=== PATIENT | male | born 1970 | race Caucasian/White ===

== ENCOUNTER 2019-05-13 23:01 | Inpatient (IN) | payer MEDICARE, MEDICAID ==
[~2019-05-13] VITALS: Ht 175.3 cm; Wt 61.2 kg
--- NOTE | 2019-05-13 23:14 | Emergency Room Report ---
History of Present Illness General Chief Complaint: Dyspnea/Respdistress Source: Patient Present Illness [facility] This is a 48-year-old male with a history of renal failure on hemodialysis. His dialysis days are Monday, , and Monday. He presents with chief plane of shortness of breath. Onset today. Severe. Per EMS he was dyspneic but oxygenation was 93% on room air. They gave him a breathing treatment. He said this happened to him before. Denies any nausea vomiting. Denies any chest pain. Worse with exertion. Better with rest. Also very anxious and requesting Ativan. Allergies: Coded Allergies: PROCHLORPERAZINE (Verified Allergy, Unknown, 05/13/19) Uncoded Allergies: ERYTHROMYCIN (Allergy, Unknown, 05/13/19) Patient History Past Medical History: see triage record, old chart reviewed, HTN, renal disease , dialysis Past Surgical History: other Pertinent Family History: none Social History: Reports: smoking Immunizations: other Reviewed Nursing Documentation: PMH: Agreed; PSxH: Agreed Nursing Documentation-PMH Hx Cardiac Problems: No - HIV Hx Hypertension: Yes Hx COPD: Yes Hx Gastrointestinal Problems: Yes Hx Dialysis: Yes History Of Psychiatric Problem: No - NEUROPATHY Review of Systems Eye: Denies: eye pain, blurred vision ENT: Denies: ear pain, nose congestion, throat swelling Respiratory: Reports: shortness of breath; Denies: cough Cardiovascular: Denies: chest pain, palpitations Gastrointestinal: Denies: abdominal pain, diarrhea, nausea, vomiting Musculoskeletal: Denies: back pain, joint pain Skin: Denies: rash Neurological: Denies: headache, numbness Endocrine: Denies: increased thirst, increased urine Hematologic/Lymphatic: Denies: easy bruising All Other Systems: negative except mentioned in HPI Physical Exam Vital Signs Date Time Temp Pulse Resp B/P (MAP) Pulse Ox O2 Delivery O2 Flow Rate FiO2 05/13/19 23:01 97.7 100 28 206/115 (145) 93 Room Air Vitals with hypertension Sp02 EP Interpretation: reviewed, abnormal General Appearance: well appearing, alert, moderate distress Head: normocephalic, atraumatic Eyes: bilateral eye PERRL, bilateral eye EOMI ENT: hearing grossly normal, normal pharynx Neck: full range of motion, supple, no meningismus Respiratory: chest non-tender, respiratory distress, decreased breath sounds, accessory muscle use, rales Cardiovascular #1: regular rate, rhythm, no murmur Gastrointestinal: normal bowel sounds, non tender, no mass, no organomegaly, no bruit, non-distended Musculoskeletal: back normal, gait/station normal, normal range of motion Psychiatric: mood/affect normal Procedures Critical Care Time Critical Care Time Critical care is mandated in this patient who presented with mature distress secondary to fluid overloaded. Patient require my urgent intervention to attenuate the risks of respiratory collapse which may lead to cardiovascular collapse and . Critical care time is 35 minutes excluding any reportable procedure. Critical care time included evaluation, multiple reevaluation, looking at old charts, interpreting laboratory and diagnostic data, discussing case with patient and family and consultants, and charting. Medical Decision Making Diagnostic Impression: Primary Impression: Respiratory failure with hypoxia Qualified Codes: J96.01 - Acute respiratory failure with hypoxia Additional Impressions: Acute exacerbation of CHF (congestive heart failure) Qualified Codes: I50.9 - Heart failure, unspecified Acute hyperkalemia Anxiety Hypertension Qualified Codes: I10 - Essential (primary) hypertension ER Course Patient with acute respiratory failure secondary to fluid overloaded. Chest x- ray showed basilar congestion but no pulmonary edema. He is better on BiPAP. Blood pressure treated with hydralazine. He does have hyperkalemia of 6.1. No EKG changes of peaked T waves. Kayexalate given here. First set of troponin negative. Patient will be admitted for monitoring and dialysis. I discussed the case with Dr. Cheema who will admit. Lab Results Impression Labs with hyperkalemia EKG Diagnostic Results Rate: normal Rhythm: NSR ST Segments: no acute changes Rhythm Strip Diag. Results EP Interpretation: yes Rate: 100 Rhythm: NSR, no PVC's, no ectopy Chest X-Ray Diagnostic Results Chest X-Ray Diagnostic Results : Chest X-Ray Ordered: Yes # of Views/Limited/Complete: 1 View Indication: Shortness of Breath EP Interpretation: Yes Interpretation: no consolidation, no effusion, no pneumothorax, other - Cardiomegaly with vascular congestion Impression: Other - CHF Electronically Signed by: Chato Randolph MD Last Vital Signs Date Time Temp Pulse Resp B/P (MAP) Pulse Ox O2 Delivery O2 Flow Rate FiO2 05/13/19 23:01 97.7 100 28 206/115 (145) 93 Room Air Status: improved Disposition: ADMITTED INPATIENT Condition: Serious Chato Randolph MD May 13, 2019 23:14
[2019-05-13] MEDS ORDERED: LORazepam Inj 2mg/ml 1ml IV ONE (23:15)
[2019-05-13 23:22] VITALS: BP 156/84
[2019-05-13 23:30] LABS: BASOPHILS % (AUTO) 0.8 % (0.0-2.0); EOSINOPHILS % (AUTO) 3.1 % (0.0-3.0); HEMATOCRIT 33.9 % (42.0-52.0); HEMOGLOBIN 11.7 G/DL (14.2-18.0); LYMPHOCYTES % (AUTO) 16.8 % (20.0-45.0); MEAN CORPUSCULAR VOLUME 93 FL (80-99); MONOCYTES % (AUTO) 6.3 % (1.0-10.0); NEUTROPHILS % (AUTO) 72.9 % (45.0-75.0); PLATELET COUNT 119 K/UL (150-450); RED BLOOD COUNT 3.62 M/UL (4.70-6.10); RED CELL DISTRIBUTION WIDTH 12.4 % (11.6-14.8)
[2019-05-13] MEDS ORDERED: IBUPROFEN600 MG ORAL (23:39)
[2019-05-13] MEDS ORDERED: BENADRYL25 M3 PO (23:39)
[2019-05-13] MEDS ORDERED: LAMIVUDINE10 MG/1 ML PO (23:39)
[2019-05-13] MEDS ORDERED: TRAZODONE HCL100 MG ORAL (23:39)
[2019-05-13] MEDS ORDERED: NEURONTIN300 MG ORAL (23:39)
[2019-05-13] MEDS ORDERED: COREG25 MG ORAL (23:39)
[2019-05-13] MEDS ORDERED: TENORMIN100 MG ORAL (23:39)
[2019-05-13] MEDS ORDERED: CLOPIDOGREL75 MG ORAL (23:39)
[2019-05-13] MEDS ORDERED: NORVASC10 MG ORAL (23:39)
[2019-05-13] MEDS ORDERED: TIZANIDINE HCL4 M2 ORAL (23:39)
[2019-05-13] MEDS ORDERED: DRONABINOL10 MG PO (23:39)
[2019-05-13] MEDS ORDERED: TIVICAY50 MG ORAL (23:39)
[2019-05-13] MEDS ORDERED: LORAZEPAM2 MG ORAL (23:39)
[2019-05-13] MEDS ORDERED: RENVELA2.4 GM ORAL (23:39)
[2019-05-13] MEDS ORDERED: ATORVASTATIN CA20 MG ORAL (23:39)
[2019-05-13] MEDS ORDERED: MEGESTROL ACETA40 MG PO (23:39)
[2019-05-13] MEDS ORDERED: DOCUSATE SODIU100 M2 ORAL (23:39)
[2019-05-13 23:55] LABS: ALANINE AMINOTRANSFERASE 15 U/L (12-78); ALBUMIN/GLOBULIN RATIO 1.3 (1.0-2.7); ALKALINE PHOSPHATASE 69 U/L (46-116); ANION GAP 14 mmol/L (5-15); ASPARTATE AMINO TRANSFERASE 18 U/L (15-37); BILIRUBIN,TOTAL 0.4 MG/DL (0.2-1.0); BLOOD UREA NITROGEN 64 mg/dL (7-18); CALCIUM 8.9 MG/DL (8.5-10.1); CARBON DIOXIDE 26 MMOL/L (21-32); CHLORIDE 99 MMOL/L (98-107); CKMB 2.1 NG/ML (0.0-3.6); CREATINE KINASE 111 U/L (26-308); CREATININE 9.9 MG/DL (0.55-1.30); SODIUM 140 MMOL/L (136-145)
[2019-05-13 23:59] LABS: POTASSIUM 6.1 MMOL/L (3.5-5.1)
[2019-05-14] MEDS ORDERED: Sodium Polystyrene Sulfonate 15gm Powder ORAL ONE
[2019-05-14] MEDS ORDERED: LORazepam Inj 2mg/ml 1ml IV ONE (00:15)
[2019-05-14 01:10] VITALS: BP 171/110
[2019-05-14] MEDS ORDERED: DiphenhydrAMINE 50mg/ml Inj IVP ONE (02:15)
[2019-05-14] MEDS ORDERED: LORazepam 1mg tab ORAL PRN (07:00)
[2019-05-14] MEDS ORDERED: traMADol 50mg tab ORAL PRN (07:15)
--- NOTE | 2019-05-14 07:30 | History and Physical Report ---
DATE OF ADMISSION: 05/14/2019 REASON FOR ADMISSION: 1. Shortness of breath. 2. Hyperkalemia. HISTORY OF PRESENT ILLNESS: The patient is a 48-year-old gentleman on dialysis three days a week, Monday, , Monday, presented to the emergency room for further evaluation and care of shortness of breath and high potassium of 6.1. Was placed on BiPAP and admitted to the step-down unit. The patient did have hemodialysis overnight. The patient is breathing better. ALLERGIES: Prochlorperazine and erythromycin. PAST MEDICAL HISTORY: 1. HIV. 2. End-stage renal disease. 3. Hypertension. PAST SURGICAL HISTORY: Dialysis catheter. FAMILY HISTORY: Positive for hypertension. SOCIAL HISTORY: Positive for tobacco. No current alcohol or illicit drug use. REVIEW OF SYSTEMS: NEUROLOGIC: The patient denies any headache, change in vision, syncope, presyncopal episodes. CARDIOVASCULAR: No current chest pain, palpitations, or angina. PULMONARY: Mild shortness of breath, nonproductive cough. GI/: No change in urinary or bowel habits. No nausea, vomiting, or diarrhea. ENDOCRINOLOGY: No night sweats, fevers, or chills. LABORATORY AND DIAGNOSTIC DATA: Labs dated 05/13/2019 potassium 6.1, BUN 64, creatinine 9.9. Brain natriuretic peptide 35,000. White cell count 8, hemoglobin 11.7, and platelet count 119. PHYSICAL EXAMINATION: VITAL SIGNS: Blood pressure 171/110, respiratory rate 26, pulse 102, temperature 98.0. GENERAL: The patient awake, mildly anxious, agitated. HEENT: Extraocular muscles intact. No lymphadenopathy. Oropharyngeal mucosa is clear and dry CARDIOVASCULAR: S1 and S2. Mild tachycardia. ABDOMEN: Nondistended and nontender. EXTREMITIES: No edema. ASSESSMENT AND PLAN: 1. Hyperkalemia. At this time, the patient was emergently dialyzed overnight and repeat laboratories are pending. 2. Shortness of breath. The patient at 3 liters of ultrafiltration and is currently on BiPAP, breathing better. Pulmonary to evaluate. 3. Hypertension. We will adjust medications as deemed appropriate. 4. HIV. We will investigate whether or not the patient was on HIV medications. 5. Anxiety. We will continue benzodiazepines. 6. DVT prophylaxis with heparin. Modesto Elizondo MD DR: Galileo JOB#: [id number] CC:
[2019-05-14 08:00] VITALS: BP 161/101
[2019-05-14 08:31] LABS: ANION GAP 11 mmol/L (5-15); BLOOD UREA NITROGEN 42 mg/dL (7-18); CALCIUM 9.2 MG/DL (8.5-10.1); CARBON DIOXIDE 28 MMOL/L (21-32); CHLORIDE 100 MMOL/L (98-107); CREATININE 7.5 MG/DL (0.55-1.30); POTASSIUM 4.9 MMOL/L (3.5-5.1); SODIUM 138 MMOL/L (136-145)
[2019-05-14] MEDS ORDERED: Aspirin Baby 81mg ORAL SCH (09:00)
[2019-05-14] MEDS ORDERED: Carvedilol 12.5mg tab ORAL SCH (09:00)
[2019-05-14] MEDS ORDERED: Heparin 5000 units/ml inj SUBQ SCH (09:00)
--- NOTE | 2019-05-14 10:04 | Diagnostic Imaging Report ---
Indication: Shortness of breath Technique: One view of the chest Comparison: none Findings: Interstitial markings are slightly prominent. The heart is borderline enlarged. There is slight blunting of the bilateral costophrenic sulci. No focal airspace consolidation. There is evidence of prior cervical spine surgery. Old healed rib fracture deformities are seen on the left. Impression: Borderline cardiomegaly Slightly prominent interstitial markings, could represent chronic changes such as COPD changes versus mild interstitial congestion. Correlate with clinical findings Slight bilateral costophrenic angle blunting, scarring versus pleural fluid
--- NOTE | 2019-05-14 10:59 | Cardiology Report ---
APPROVED REPORT EKG Measurement Heart [id number] Normal sinus rhythm Left ventricular hypertrophy with repolarization abnormality Prolonged QT Abnormal ECG
[2019-05-14 12:00] VITALS: BP 151/102
--- NOTE | 2019-05-14 12:01 | Consultation ---
Consult Note Consult Note HISTORY OF PRESENT ILLNESS: The patient is a 48-year-old gentleman on dialysis three days a week, Monday, , Monday, presented to the emergency room for further evaluation and care of shortness of breath and high potassium of 6.1. He was placed on BiPAP and admitted to the step-down unit. The patient did have hemodialysis overnight. The patient is breathing better. He denies any pre-existing pulmonary issues. ALLERGIES: Prochlorperazine and erythromycin. PAST MEDICAL HISTORY: 1. HIV. 2. End-stage renal disease. 3. Hypertension. PAST SURGICAL HISTORY: Dialysis catheter. FAMILY HISTORY: Positive for hypertension. SOCIAL HISTORY: Positive for tobacco. No current alcohol or illicit drug use. REVIEW OF SYSTEMS: NEUROLOGIC: The patient denies any headache, change in vision, syncope, presyncopal episodes. CARDIOVASCULAR: No current chest pain, palpitations, or angina. PULMONARY: Mild shortness of breath, nonproductive cough. GI/: No change in urinary or bowel habits. No nausea, vomiting, or diarrhea. ENDOCRINOLOGY: No night sweats, fevers, or chills. LABORATORY AND DIAGNOSTIC DATA: Labs dated 05/13/2019 potassium 6.1, BUN 64, creatinine 9.9. Brain natriuretic peptide 35,000. White cell count 8, hemoglobin 11.7, and platelet count 119. PHYSICAL EXAMINATION: VITAL SIGNS: Blood pressure 171/90, respiratory rate 26, pulse 98, temperature 98.0. GENERAL: The patient awake, mildly anxious, agitated. HEENT: Extraocular muscles intact. No lymphadenopathy. Oropharyngeal mucosa is clear and dry CARDIOVASCULAR: S1 and S2. Mild tachycardia. Chest clear to auscultation. ABDOMEN: Nondistended and nontender. EXTREMITIES: No edema. ASSESSMENT AND PLAN: 1. Hyperkalemia. At this time, the patient was emergently dialyzed overnight and repeat laboratories are pending. 2. Shortness of breath. The patient at 3 liters of ultrafiltration and is currently on BiPAP, breathing better. On low flow O2. 3. Hypertension. 4. HIV. 5. Anxiety. 6. DVT prophylaxis with heparin. Will follow MD Sebastian Bell Omar Syed MD May 14, 2019 12:01
[2019-05-14] MEDS ORDERED: Meningococcal Polysacc Vaccine IM ONE (14:00)
[2019-05-14] MEDS ORDERED: Atorvastatin 20mg tab ORAL SCH (21:00)
[2019-05-14] MEDS ORDERED: TraZODone 100mg tab ORAL SCH (21:00)
--- NOTE | 2019-05-15 11:27 | Discharge Summary ---
Discharge Summary Discharge Summary _ DATE OF ADMISSION: 05/14/2019 DATE OF DISCHARGE: 05/14/2019 DISCHARGED BY: Dr. Elizondo REASON FOR ADMISSION: 48 years old male with past medical history of end-stage renal disease, on hemodialysis 3 times a week , hypertension, HIV status , presented to emergency room for evaluation due to shortness of breath for 1 day. Per EMS patient was dyspneic, but pulse oximetry was 92% on room air. Patient received bronchodilator treatment en route to the hospital. Patient stated that it happened to him before. He denied nausea and vomiting. He denied chest pain. Upon evaluation vital signs revealed elevated blood pressure of 206/115 , pulse oximetry was 93% on room air. EKG revealed normal sinus rhythm, no acute ischemic changes. Chest x-ray demonstrated borderline cardiomegaly with slightly prominent interstitial markings , representing chronic changes , such as COPD changes versus mild interstitial congestion. Laboratory work-up revealed no leukocytosis, hemoglobin 11.7, hematocrit 33.9 , platelet count 119. Chemistry showed potassium 6.1. BUN 64, creatinine 9.9, consistent with known history of end-stage renal disease. Troponin was negative. Pro BNP about 35,000. EKG revealed normal sinus rhythm , no acute ischemic changes. Patient was placed on the BiPAP. Shortness of breath was likely secondary to fluid overload. Blood pressure was managed with hydralazine. Kayexalate provided for hyperkalemia. Patient admitted to telemetry floor and hemodialysis CONSULTANTS: pulmonary Dr. Cortes HOSPITAL COURSE: Patient admitted to the direct observational unit. Patient received hemodialysis with ultrafiltration overnight. Respiratory status improved . Blood pressure was managed with home medications, including beta-heather and calcium channel heather , and hydralazine was on board as needed. Other home medication continued. DVT prophylaxis with heparin provided In the morning potassium 4.9. BUN 42, creatinine 7.5. Blood pressure down to 151/102. Pulse oximetry 97% on oxygen 2 L via nasal cannula. Patient clinically stabilized and was ready for discharge. Due to rapid and unexpected improvement in patient condition, patient was discharged in 1 day. FINAL DIAGNOSES: Acute hyperkalemia -resolved Shortness of breath, likely due to fluid overload -resolved ESRD, on HD Hypertension with hypertensive urgency initially-resolved HIV status Anxiety DISCHARGE MEDICATIONS: See Medication Reconciliation list. DISCHARGE INSTRUCTIONS: Patient was discharged home with home health services. Follow up with primary care provider in one week. I have been assigned to dictate discharge summary for this account. I was not involved in the patient's management. Susie Avalos NP May 15, 2019 11:27
== END 2019-05-14 15:08 | disposition home health service (06) | DRG 640 ==
LOC: EDBD 23:01 → EMR 23:39 → 2W 05-14 00:02 → EDBEDREQ 05-14 00:33 → 2W 05-14 00:53
PROC: 5A1D70Z Performance of Urinary Filtration, Intermittent, Less than 6 Hours Per Day (ICD-10-PCS; principal; 2019-05-14)
PROC: 5A09357 Assistance with Respiratory Ventilation, Less than 24 Consecutive Hours, Continuous Positive Airway Pressure (ICD-10-PCS; principal; 2019-05-14)
DX: E87.5 Hyperkalemia (principal); N18.6 End stage renal disease; I12.0 Hypertensive chronic kidney disease with stage 5 chronic kidney disease or end stage renal disease; Z21 Asymptomatic human immunodeficiency virus [HIV] infection status; F41.9 Anxiety disorder, unspecified; E87.70 Fluid overload, unspecified; Z99.2 Dependence on renal dialysis; I16.0 Hypertensive urgency; Z23 Encounter for immunization; Z88.1 Allergy status to other antibiotic agents; Z88.8 Allergy status to other drugs, medicaments and biological substances
CPT/HCPCS: 36415; 71045; 80048; 80053; 82550; 82553; 83880; 84484; 85025; 85610; 85730; 87081; 87340; 93005; 94660; 94664; 96374; 96375; 96376; 99285

== ENCOUNTER 2019-06-11 20:07 | Emergency (ER) | payer MEDICARE, MEDICAID ==
[~2019-06-11] VITALS: Ht 170.2 cm; Wt 72.6 kg
[~2019-06-11 20:07] MED LIST: ATORVASTATIN CA20 MG ORAL; BENADRYL25 M3 PO; CLOPIDOGREL75 MG ORAL; COREG25 MG ORAL; DOCUSATE SODIU100 M2 ORAL; DRONABINOL10 MG PO; IBUPROFEN600 MG ORAL; LAMIVUDINE10 MG/1 ML PO; LORAZEPAM2 MG ORAL; MEGESTROL ACETA40 MG PO; NEURONTIN300 MG ORAL; NORVASC10 MG ORAL; RENVELA2.4 GM ORAL; TENORMIN100 MG ORAL; TIVICAY50 MG ORAL; TIZANIDINE HCL4 M2 ORAL; TRAZODONE HCL100 MG ORAL
[2019-06-11 20:20] VITALS: BP 162/95
[2019-06-11] MEDS ORDERED: GABAPENTIN300 MG ORAL (20:33)
--- NOTE | 2019-06-11 20:34 | Emergency Room Report ---
History of Present Illness General Chief Complaint: Seizure Source: Patient, Medical Record Present Illness HPI 48-year-old male history of HIV, on dialysis presents with seizure just prior to arrival, patient was unable to obtain a seizure medications he supposed to take gabapentin 300 mg 3 times a day, he was witnessed at the long-term house to have a tonic-clonic movement, lasting a minute, patient thinks he may have hit his head, patient does not make urine because he is on dialysis, denies any chest pain shortness of breath states he is back to baseline, patient presents via EMS for evaluation Patient reports he gets dialysis Monday, he states he is due for dialysis tomorrow because he denies any chest pain shortness of breath states he needs to take his gabapentin he has not filled his prescription for gabapentin to prevent seizures. Allergies: Coded Allergies: PROCHLORPERAZINE (Verified Allergy, Unknown, 05/13/19) Uncoded Allergies: ERYTHROMYCIN (Allergy, Unknown, 05/13/19) Patient History Past Medical History: see triage record Reviewed Nursing Documentation: PMH: Agreed; PSxH: Agreed Nursing Documentation-PMH Hx Cardiac Problems: Yes - HIV Hx Hypertension: Yes Hx COPD: Yes Hx Cancer: No Hx Gastrointestinal Problems: No Hx Dialysis: Yes - , SAT Hx Neurological Problems: Yes Hx Peripheral Neuropathy: Yes Review of Systems All Other Systems: negative except mentioned in HPI Physical Exam Vital Signs Date Time Temp Pulse Resp B/P (MAP) Pulse Ox O2 Delivery O2 Flow Rate FiO2 06/11/19 20:06 97.9 89 16 162/95 (117) 98 Room Air Sp02 EP Interpretation: reviewed, normal General Appearance: well appearing, no apparent distress, alert Head: normocephalic, atraumatic Eyes: bilateral eye PERRL, bilateral eye EOMI ENT: uvula midline, moist mucus membranes Neck: supple, thyroid normal, supple/symm/no masses Respiratory: lungs clear, no respiratory distress, no retraction, no accessory muscle use Cardiovascular #1: normal peripheral pulses, regular rate, rhythm, no edema, no gallop, no murmur Gastrointestinal: non tender, soft, no guarding, no rebound Musculoskeletal: normal inspection Neurologic: alert, oriented x3 Psychiatric: mood/affect normal Skin: no rash, warm/dry Medical Decision Making Diagnostic Impression: Primary Impression: Epileptic seizure, generalized Additional Impression: Seizure disorder ER Course 48-year-old male presents with seizure patient did not take his seizure medication today, patient was recently started on gabapentin patient states he has not had a chance to fill it patient with breakthrough seizure Will provide patient with gabapentin here we will scan brain, will evaluate for electrolyte abnormalities Patient at baseline CT neg will dispo patient home w/ return precautions Gabapentin provided Laboratory Tests Test 06/11/19 20:45 White Blood Count 4.5 K/UL (4.8-10.8) L Red Blood Count 2.88 M/UL (4.70-6.10) L Hemoglobin 9.3 G/DL (14.2-18.0) L Hematocrit 27.6 % (42.0-52.0) L Mean Corpuscular Volume 96 FL (80-99) Mean Corpuscular Hemoglobin 32.4 PG (27.0-31.0) H Mean Corpuscular Hemoglobin Concent 33.8 G/DL (32.0-36.0) Red Cell Distribution Width 15.0 % (11.6-14.8) H Platelet Count 135 K/UL (150-450) L Mean Platelet Volume 7.3 FL (6.5-10.1) Neutrophils (%) (Auto) 63.0 % (45.0-75.0) Lymphocytes (%) (Auto) 19.2 % (20.0-45.0) L Monocytes (%) (Auto) 13.5 % (1.0-10.0) H Eosinophils (%) (Auto) 2.7 % (0.0-3.0) Basophils (%) (Auto) 1.6 % (0.0-2.0) Sodium Level 142 MMOL/L (136-145) Potassium Level 4.5 MMOL/L (3.5-5.1) Chloride Level 103 MMOL/L (98-107) Carbon Dioxide Level 27 MMOL/L (21-32) Anion Gap 12 mmol/L (5-15) Blood Urea Nitrogen Pending Creatinine 6.9 MG/DL (0.55-1.30) H Estimate Glomerular Filtration Rate 8.5 mL/min (>60) Glucose Level 104 MG/DL (74-106) Calcium Level 9.8 MG/DL (8.5-10.1) Total Bilirubin 0.3 MG/DL (0.2-1.0) Aspartate Amino Transferase (AST) 16 U/L (15-37) Alanine Aminotransferase (ALT) 15 U/L (12-78) Alkaline Phosphatase 77 U/L (46-116) Total Protein Pending Albumin Pending Globulin Pending Salicylates Level 2.8 ug/mL (2.8-20) Acetaminophen Level Pending Phenytoin (Dilantin) Level Pending Valproic Acid Level Pending Carbamazepine (Tegretol) Level < 0.5 ug/mL (4.0-12.0) L Phenobarbital Level Pending Serum Alcohol Pending EKG Diagnostic Results EKG Time: 20:35 EP Interpretation: NSR, rate 86, QTc 502, no acute ST elevations, normal axis Rhythm Strip Diag. Results Rhythm Strip Time: 21:06 EP Interpretation: yes Rate: 85 Rhythm: NSR, no PVC's, no ectopy Chest X-Ray Diagnostic Results Chest X-Ray Diagnostic Results : Chest X-Ray Ordered: Yes # of Views/Limited/Complete: 1 View Indication: Other - Seizure EP Interpretation: Yes Interpretation: other - Mild blunting left lung Impression: Other - Mild blunting left lung Electronically Signed by: Shon Munoz MD CT/MRI/US Diagnostic Results CT/MRI/US Diagnostic Results : Impression CT head: No acute processes Last Vital Signs Date Time Temp Pulse Resp B/P (MAP) Pulse Ox O2 Delivery O2 Flow Rate FiO2 06/11/19 20:06 97.9 89 16 162/95 (117) 98 Room Air Disposition: HOME, SELF-CARE Condition: Stable Scripts Gabapentin* (GABAPENTIN*) 300 Mg Capsule 300 MG ORAL THREE TIMES A DAY, #30 CAP 0 Refills Prov: Shon Munoz MD 06/11/19 Referrals: [facility] Patient Instructions: Seizure, Adult Additional Instructions: The patient was provided with discharge instructions, notified to follow-up with a primary care doctor and or specialist in the next 24-48 hours, and to return to the ED if they have worsening of their symptoms. Please note that this report is being documented using [email or web address] technology. This can lead to erroneous entry secondary to incorrect interpretation by the dictating instrument. Shon Munoz MD Jun 11, 2019 20:34
[2019-06-11 20:56] LABS: BASOPHILS % (AUTO) 1.6 % (0.0-2.0); EOSINOPHILS % (AUTO) 2.7 % (0.0-3.0); HEMATOCRIT 27.6 % (42.0-52.0); HEMOGLOBIN 9.3 G/DL (14.2-18.0); LYMPHOCYTES % (AUTO) 19.2 % (20.0-45.0); MEAN CORPUSCULAR VOLUME 96 FL (80-99); MONOCYTES % (AUTO) 13.5 % (1.0-10.0); PLATELET COUNT 135 K/UL (150-450); RED BLOOD COUNT 2.88 M/UL (4.70-6.10); WHITE BLOOD COUNT 4.5 K/UL (4.8-10.8)
--- NOTE | 2019-06-11 21:24 | Diagnostic Imaging Report ---
Indication: Seizure Technique: Continuous helical CT scanning of the head was performed utilizing automated exposure control without intravenous contrast material. Axial and coronal reconstructions were obtained. Comparison: None CT dose: Total DLP 1411.2 mGycm; CTDI vol 70.38 mGy Findings: There is no acute intracranial hemorrhage, mass effect or cortical edema there is no shift of midline structures. Prominent calcifications noted along the falx and tentorium. The ventricles, cisterns and sulci are within normal limits for age. Mild periventricular hypoattenuation is seen, a nonspecific finding. Visualized mastoid air cells and paranasal sinuses are unremarkable. Possible mild soft tissue swelling in the left frontal region. No acute skull fracture. IMPRESSION: No evidence of acute intracranial hemorrhage, mass effect or cortical edema. MRI may be obtained for more sensitive evaluation as clinically indicated. Suggested mild soft tissue swelling the left frontal region. No acute skull fracture. Salient findings correspond with the statrad preliminary report. The CT scanner at [facility] is accredited by the [employer] and the scans are performed using protocols designed to limit radiation exposure to as low as reasonably achievable to attain images of sufficient resolution adequate for diagnostic evaluation.
[2019-06-11 22:12] LABS: ALANINE AMINOTRANSFERASE 15 U/L (12-78); ALKALINE PHOSPHATASE 77 U/L (46-116); ANION GAP 12 mmol/L (5-15); ASPARTATE AMINO TRANSFERASE 16 U/L (15-37); BILIRUBIN,TOTAL 0.3 MG/DL (0.2-1.0); CALCIUM 9.8 MG/DL (8.5-10.1); CARBON DIOXIDE 27 MMOL/L (21-32); CHLORIDE 103 MMOL/L (98-107); CREATININE 6.9 MG/DL (0.55-1.30); POTASSIUM 4.5 MMOL/L (3.5-5.1); SODIUM 142 MMOL/L (136-145)
[2019-06-11 23:03] LABS: ALBUMIN 4.1 G/DL (3.4-5.0); ALBUMIN/GLOBULIN RATIO 1.3 (1.0-2.7); BLOOD UREA NITROGEN 35 mg/dL (7-18)
[2019-06-11] MEDS ORDERED: oxyCODONE HCL/Acetaminophen 5/325mg ORAL ONE (23:15)
[2019-06-11 23:30] VITALS: BP 136/86
--- NOTE | 2019-06-12 10:54 | Diagnostic Imaging Report ---
Indication: Chest pain, seizure Technique: XRAY Chest 1v Comparison: 05/13/2019 Findings: Heart size and mediastinal contours are stable. Interstitial and bilateral patchy airspace opacities are noted, similar compared to the prior exam. No definite new focal consolidation is identified. No evidence of pneumothorax. No radiographically appreciable pleural effusion. There are degenerative changes of the spine. Some remote/healed left-sided rib fractures are noted. No acute osseous abnormality is appreciated. Multiple vascular stents project over the right upper lung and right axillary region. There are calcifications projecting over the soft tissues of the right arm. Findings suggest end-stage renal disease with right upper extremity dialysis access. Fixation hardware noted in the lower cervical spine. IMPRESSION: Prominent interstitial lung markings with some patchy opacities in the periphery, similar to the prior exam. These may represent chronic changes related to COPD and scarring. Superimposed congestive changes/early interstitial edema and/or infection cannot be excluded. Correlate clinically. Findings suggestive of end-stage renal disease on hemodialysis via right upper extremity access.
== END 2019-06-11 23:30 | disposition home or self-care (01) ==
LOC: EDBD 20:07 → EMR 20:36
DX: G40.409 Other generalized epilepsy and epileptic syndromes, not intractable, without status epilepticus (principal); B20 Human immunodeficiency virus [HIV] disease; I12.0 Hypertensive chronic kidney disease with stage 5 chronic kidney disease or end stage renal disease; N18.6 End stage renal disease; Z99.2 Dependence on renal dialysis; Z88.8 Allergy status to other drugs, medicaments and biological substances; Z88.1 Allergy status to other antibiotic agents
CPT/HCPCS: 36415; 70450; 71045; 80053; 80156; 80164; 80184; 80185; 82962; 85025; 93005; 99284; G0480; 80329